=== PATIENT | male | born 1950 | race Caucasian/White ===

== ENCOUNTER 2018-04-30 14:45 | Outpatient (RCR) | payer MEDICARE, OTHER | END 2018-05-17 | disposition home or self-care (01) | LOC: ONC 14:45 | PROVIDERS: ATTEND Radiology Radiation Oncology | DX: C61 Malignant neoplasm of prostate (principal) | CPT/HCPCS: 76873; 99205 ==

== ENCOUNTER 2018-07-03 06:06 | Outpatient (CLI) | payer MEDICARE, OTHER ==
[~2018-07-03] VITALS: Ht 177.8 cm; Wt 122.5 kg
[2018-07-03] MEDS ORDERED: VALS1TAB72 PO (09:04)
[2018-07-03] MEDS ORDERED: ROPI3TAB4 PO (09:04)
[2018-07-03] MEDS ORDERED: PROP10TA8 PO (09:04)
[2018-07-03] MEDS ORDERED: OMEP40CA36 PO (09:04)
[2018-07-03] MEDS ORDERED: BACL10TA PO (09:04)
[2018-07-10] MEDS ORDERED: ACET1TAB43 PO (11:10)
[2018-07-10] MEDS ORDERED: CIPR-226 PO (11:10)
== END 2018-07-03 09:19 | disposition home or self-care (01) ==
LOC: PREOP 06:06
PROVIDERS: ATTEND Radiology Radiation Oncology
DX: Z01.818 Encounter for other preprocedural examination (principal)

== ENCOUNTER 2018-07-08 10:45 | Outpatient (RCR) | payer MEDICARE, OTHER ==
[~2018-07-08 10:45] MED LIST: BACL10TA PO; OMEP40CA36 PO; PROP10TA8 PO; ROPI3TAB4 PO; VALS1TAB72 PO
[2018-07-10] MEDS ORDERED: CIPR-226 PO (11:10)
[2018-07-10] MEDS ORDERED: ACET1TAB43 PO (11:10)
== END 2018-08-07 09:25 | disposition home or self-care (01) ==
LOC: ONC 10:45
PROVIDERS: ATTEND Radiology Radiation Oncology
DX: C61 Malignant neoplasm of prostate (principal)
CPT/HCPCS: 77331

== ENCOUNTER 2018-07-10 10:07 | Day surgery (SDC) | payer MEDICARE, OTHER ==
[~2018-07-10] VITALS: Ht 177.8 cm; Wt 122.5 kg
[2018-07-10 10:16] VITALS: BP 131/86
[2018-07-10] MEDS ORDERED: LEVOFLOXACIN 500 MG/100 ML IV 100 ML IV ONE (10:30)
[2018-07-10] MEDS ORDERED: FAMOTIDINE 20MG/2ML IV (PEPCID) IV ONE (10:45)
--- NOTE | 2018-07-10 10:49 | Progress Note-Pre Operative ---
Pre-Operative Progress Note H&P Reviewed The H&P was reviewed, patient examined and no changes noted. Date Seen by Provider: Jul 10, 2018 Time Seen by Provider: 10:49 Date H&P Reviewed: Jul 10, 2018 Time H&P Reviewed: 10:49 Pre-Operative Diagnosis: Prostate cancer cT1c, PSA 7.57, [place] 7 (3+4) MIK SLOAN MD Jul 10, 2018 10:49
[2018-07-10] MEDS ORDERED: fentaNYL INJECTION 100 MCG/2 ML AMP ONE ×2 (11:00→13:20)
[2018-07-10] MEDS ORDERED: MIDAZOLAM 2 MG/2 ML (VERSED) VIAL ONE (11:00)
--- NOTE | 2018-07-10 11:01 | Discharge Inst-Simple/Standard ---
Discharge Inst-Standard Discharge Medications New, Converted or Re-Newed RX: RX Given to Pt/Family Patient Instructions/Follow Up Plan of Care/Instructions/FU: 1) Follow up appointment with Dr. Gaines on Aug 07 at 9:30 a.m. 2) Follow up appointment at [facility] for post implant ct sim on 08/12 at 2:45 p.m. Activity as Tolerated: Yes Discharge Diet: No Restrictions Other Inst to Patient Please instruct patient/family on brown removal. To be done on Thursday 07/12 or Sunday 07/[address] Gaines. If patient does not want to self remove then please make appropriate arrangements with Dr. Gaines's office . MIK SLOAN MD Jul 10, 2018 11:01
[2018-07-10] MEDS ORDERED: LIDOCAINE PF 2% 5 ML (XYLOCAINE) VIAL ONE (11:08)
[2018-07-10] MEDS ORDERED: ONDANSETRON 4 MG/2 ML (SDV) Z0FRAN ONE (11:08)
[2018-07-10] MEDS ORDERED: proPOfol 200 MG/20 ML (DIPRIVAN) VIAL IV ONE ×2 (11:08→13:21)
[2018-07-10] MEDS ORDERED: ROCURONIUM 10 MG/ML 5 ML SYRINGE IV ONE (11:08)
[2018-07-10] MEDS ORDERED: DEXAMETHASONE 10 MG/ML (DECADRON) 1 ML VIAL ONE (11:08)
[2018-07-10] MEDS ORDERED: SEVOFLURANE (ULTANE) 15 ML INHAL SOLN ONE (11:08)
[2018-07-10] MEDS ORDERED: CIPR-226 PO (11:10)
[2018-07-10] MEDS ORDERED: ACET1TAB43 PO (11:10)
[2018-07-10] MEDS: LACTATED RINGERS 1,000 ML IV PRN ×2 (11:35→13:24)
[2018-07-10] MEDS ORDERED: PHENYLEPHRINE 100 MCG/ML 10 ML (ANESTHESIA) SYR ONE (13:07)
--- NOTE | 2018-07-10 14:04 | Diagnostic Imaging Report ---
INDICATION: Fluoroscopy during prostate brachytherapy. Fluoroscopy was provided during prostate brachytherapy. 14 seconds of fluoroscopy was utilized. Single image shows multiple radiation seed implants overlying the midline of the pelvis. IMPRESSION: Fluoroscopy for brachytherapy. Dictated by: Dictated on workstation # [id number]
[2018-07-10] MEDS ORDERED: ONDANSETRON 4 MG/2 ML (SDV) Z0FRAN IVP PRN (14:15)
[2018-07-10] MEDS ORDERED: morphine INJ 10 MG/ML 1ML (SYR OR VIAL) IVP ONE (14:15)
--- NOTE | 2018-07-10 14:24 | Anesthesia-General Post-Op ---
General Patient Condition Mental Status/LOC: Same as Preop Cardiovascular: Satisfactory Nausea/Vomiting: Absent Respiratory: Satisfactory Pain: Controlled Complications: Absent Post Op Complications Complications None Follow Up Care/Instructions Patient Instructions None needed. Anesthesia/Patient Condition Patient Condition Patient is doing well, no complaints, stable vital signs, no apparent adverse anesthesia problems. No complications reported per nursing. AYESHA ANDERSON CRNA Jul 10, 2018 14:23
--- NOTE | 2018-07-10 14:48 | Progress Note-Post Operative ---
Post-Operative Progess Note Surgeon (s)/Early Childhood Associate (s) Surgeon MIK SLOAN MD Early Childhood Associate: Arianne ROBBINS MD Pre-Operative Diagnosis Prostate cancer cT1c, PSA 7.57, [place] 7 (3+4) Post-Operative Diagnosis SAME PRE OP Procedure & Operative Findings Date of Procedure 07/10/18 Procedure Performed/Findings 100% Cesium 131 permanent prostate seed implant, cystogram, and insertion of biodegradable hydrogel prostate-rectal spacer utilizing the [employer] system Prostate volume 42 cc. Anesthesia Type General Estimated Blood Loss Estimated blood loss (mL): Minimal Specimens/Packing Specimens Removed None Packing: None MIK SLOAN MD Jul 10, 2018 14:48
[2018-07-10 15:00] VITALS: BP 99/63
[2018-07-10 15:30] VITALS: BP 116/63
[2018-07-10 16:00] VITALS: BP 121/68
[2018-07-10 17:00] VITALS: BP 121/68
== END 2018-07-10 17:00 | disposition home or self-care (01) ==
LOC: SDC 10:07
PROVIDERS: ATTEND Radiology Radiation Oncology
DX: C61 Malignant neoplasm of prostate (principal); G25.81 Restless legs syndrome; K21.9 Gastro-esophageal reflux disease without esophagitis; N52.9 Male erectile dysfunction, unspecified; I10 Essential (primary) hypertension; E66.9 Obesity, unspecified; Z80.42 Family history of malignant neoplasm of prostate; Z80.1 Family history of malignant neoplasm of trachea, bronchus and lung; Z80.3 Family history of malignant neoplasm of breast; Z68.38 Body mass index [BMI] 38.0-38.9, adult; Z79.899 Other long term (current) drug therapy; Z96.653 Presence of artificial knee joint, bilateral
CPT/HCPCS: 76965; 77290; 77318; 77332; 77370; 77470; 77778; 87081

== ENCOUNTER 2018-08-07 09:27 | Outpatient (RCR) | payer MEDICARE, OTHER | END 2018-11-05 | disposition home or self-care (01) | LOC: ONC 09:27 | PROVIDERS: ATTEND Radiology Radiation Oncology | DX: C61 Malignant neoplasm of prostate (principal) | CPT/HCPCS: 77290 ==